=== PATIENT | male | born 1975 | race Caucasian/White ===

== ENCOUNTER 2018-11-21 00:49 | Emergency (ER) | payer OTHER ==
[2018-11-21 00:56] VITALS: BMI 24.3
--- NOTE | 2018-11-21 02:01 | ED PDOC ---
HPI: Psych/Substance Abuse Time Seen by Provider: 11/21/18 01:15 Chief Complaint (Nursing): Alcohol Ingestion Chief Complaint (Provider): Alcohol Ingestion ED Caveat: Intoxicated History Per: EMS, Other (Police) History/Exam Limitations: intoxication Modifying Factor(s): Alcohol Additional Complaint(s): 43 y/o male brought in by police and EMS for alcohol intoxication. Per police, patient seemed stumbling in street and fell to a sideview mirror of a car and hit his head. Patient was unconscious on arrival but arousable to verbal stimuli. Police report patient is speaking but intoxicated and deny loss of consciousness. Patient opens his eye for sternum rub. Patient is unable to provide history due to his intoxicated condition. PMD: non provided Past Medical History Reviewed: Historical Data, Nursing Documentation, Vital Signs Vital Signs: Last Vital Signs Temp 98.9 F 11/21/18 00:56 Pulse 73 11/21/18 00:56 Resp 18 11/21/18 00:56 BP 128/83 11/21/18 00:56 Pulse Ox 97 11/21/18 00:56 PAULA Report Viewed: Yes - Medical History PMH: No Chronic Diseases Denies: Chronic Kidney Disease - Surgical History Surgical History: Tonsillectomy - Family History Family History: States: Unknown Family Hx - Social History Alcohol: > 2 Drinks/Day - Home Medications Home Medications: Ambulatory Orders Medication Instructions Recorded No Known Home Med 06/10/18 - Allergies Allergies/Adverse Reactions: Allergies Allergy/AdvReac Type Severity Reaction Status Date / Time No Known Allergies Allergy Verified 11/21/18 00:56 Review of Systems Review Of Systems: ROS cannot be obtained secondary to pt's inabilty to answer questions. Physical Exam - Reviewed Nursing Documentation Reviewed: Yes Vital Signs Reviewed: Yes (within normal limits) - Physical Exam Appears: Positive for: No Acute Distress Head Exam: Positive for: ATRAUMATIC, NORMOCEPHALIC Eye Exam: Positive for: Other (0.5 cm laceration to right eyebrow) Neck: Positive for: Normal, Painless ROM, Supple Cardiovascular/Chest: Positive for: Regular Rate, Rhythm. Negative for: Murmur Respiratory: Positive for: Normal Breath Sounds. Negative for: Wheezing Gastrointestinal/Abdominal: Positive for: Normal Exam, Soft. Negative for: Tenderness Extremity: Positive for: Normal ROM. Negative for: Pedal Edema, Deformity - Laboratory Results Result Diagrams: 11/21/18 01:55 11/21/18 01:55 - ECG O2 Sat by Pulse Oximetry: 97 (RA) Pulse Ox Interpretation: Normal Medical Decision Making Medical Decision Making: Time: 114 A/P: AMS seen sleeping on the stretcher --Probable alcohol intoxication --Intercranial, spinal or facial injury --Basic labs with alcohol level --CT c-spine, maxillofacial and head 0302 --Patient is incoherent, out of bed, urinating on floor and falling onto hughes and on stretcher. Requires sedation in order to get CT 0611 CT Head Findings: Normal size of the ventricles and extra-axial spaces for the patient's age. Normal white matter tracts of the supratentorial brain. Normal basal ganglia and thalami. Normal brainstem. Normal cerebellum. There is no demonstrated extra-axial, intraparenchymal, or intraventricular hemorrhage. There are no findings of an acute ischemic infarction. Normal calvarium. There is no demonstrated fracture. Normal soft tissue structures. Mild chronic inflammatory changes of the visualized paranasal sinuses. IMPRESSION: Normal unenhanced CT scan of the brain. Chronic sinusitis. 0614 CT Maxillofacial Findings: Chronic deformity of the left parasymphyseal aspect of the mandible. Mild chronic mucosal inflammatory changes of the paranasal sinuses. Normal bilateral orbital contents. Normal bilateral medial and inferior orbital hughes. Normal bilateral maxillary bones. Normal bilateral maxillary sinuses. Normal bilateral frontozygomatic arches. Normal bilateral zygomatic temporal arches. Normal nasal bones. Normal anterior nasal spine. Normal soft tissue structures. There is no demonstrated fracture. Impression: No CT evidence of acute bone pathology. 0616 CT C-Spine Findings: There are diffuse spondylotic changes. Findings are demonstrated by disc space narrowing, osteophyte formation and degenerative endplate changes. Facet joint arthropathy is noted. No fracture or dislocation is seen. No aggressive bone lesion is noted. Impression: Spondylosis. Multilevel facet joint arthropathy. No acute bone pathology. 0620 CTs show no acute injury. Wound cleaned and dressed. Will no suture until patient is awake and co operative, pending sobriety. 0700 Patient signed out to Dr. Salcedo pending sobriety. Scribe Attestation: Documented by Yareli Parikh, acting as a scribe for Kiara Rene MD. Provider Scribe Attestation: All medical record entries made by the Scribe were at my direction and personally dictated by me. I have reviewed the chart and agree that the record accurately reflects my personal performance of the history, physical exam, medical decision making, and the department course for this patient. I have also personally directed, reviewed, and agree with the discharge instructions and disposition. Disposition - Disposition Forms: [employer] ([place])
[2018-11-21 02:29] LABS: BASO # 0.1 K/uL (0.0-0.2); BASO % 0.6 % (0.0-2.0); EOS # 0.2 K/uL (0.0-0.7); EOS % 2.3 % (0.0-4.0); HEMOGLOBIN 15.4 g/dL (12.0-18.0); LYMPH # 3.3 K/uL (1.0-4.3); LYMPH % 37.7 % (20.0-40.0); MEAN CELL VOLUME 94.1 fl (80.0-94.0); MEAN CORPUSCULAR HEMOGLOBIN 31.7 pg (27.0-31.0); MEAN CORPUSCULAR HGB CONC 33.7 g/dL (33.0-37.0); MEAN PLATELET VOLUME 9.2 fl (7.2-11.7); MONO # 0.7 K/uL (0.0-0.8); MONO % 8.3 % (0.0-10.0); NEUT # 4.4 K/uL (1.8-7.0); NEUT % 51.1 % (50.0-75.0); NRBC % 0.4 % (0.0-0.0); RBC 4.86 Mil/uL (4.40-5.90); RED CELL DISTRIBUTION WIDTH 13.4 % (11.5-14.5); WHITE BLOOD COUNT 8.7 K/uL (4.8-10.8)
[2018-11-21 02:50] LABS: BLOOD UREA NITROGEN 16 mg/dl (9-20); CALCIUM 8.5 mg/dL (8.4-10.2); GFR NON-AFRICAN AMERICAN > 60
[2018-11-21] MEDS ORDERED: Sodium Chloride 0.9% 1,000 ML IV STA (03:03)
--- NOTE | 2018-11-21 07:15 | ED PDOC ---
- Laboratory Results Result Diagrams: 11/21/18 01:55 11/21/18 01:55 - ECG O2 Sat by Pulse Oximetry: 97 (RA) - Progress Re-evaluation Time: 11:29 Condition: Improved (Awake alert oriented no focal neuro deficits) Medical Decision Making Medical Decision Makin Patient care endorsed from Dr. Rene to this provider pending sobriety and final disposition. ---- Scribe Attestation: Documented by Jackeline Vigil, acting as a scribe for Mian Salcedo MD. Provider Scribe Attestation: All medical record entries made by the Scribe were at my direction and personally dictated by me. I have reviewed the chart and agree that the record accurately reflects my personal performance of the history, physical exam, medical decision making, and the department course for this patient. I have also personally directed, reviewed, and agree with the discharge instructions and disposition. Disposition - Clinical Impression Clinical Impression: Alcohol abuse with alcohol-induced disorder - POA Present On Arrival: None - Disposition Disposition: Discharged/Transfer to Law Enforcement Disposition Time: 11:28 Condition: FAIR Additional Instructions: Medically and psychiatrically stable for incarceration Instructions: Alcohol Abuse and Alcoholism (DC) Forms: [employer] ([place])
--- NOTE | 2018-11-21 10:40 | CT ---
Date of service: 11/21/2018 PROCEDURE: CT Cervical Spine without contrast HISTORY: Head trauma while intoxicated COMPARISON: None available. TECHNIQUE: Axial computed tomography images were obtained of the cervical spine without the use of intravenous contrast. Coronal and sagittal reformatted images were created and reviewed. Radiation dose: Total exam DLP = 417.67 mGy-cm. This CT exam was performed using one or more of the following dose reduction techniques: Automated exposure control, adjustment of the mA and/or kV according to patient size, and/or use of iterative reconstruction technique. FINDINGS: Note that the study is somewhat limited due to crossing streak and beam hardening artifact arising from dense clavicles and shoulder girdles are partially obscuring fine soft tissue detail in the canal in the lower cervical upper thoracic region. Study is further limited by motion artifact. VERTEBRAE: No acute compression fractures nor retropulsed fragments. Vertebral bodies exhibit relatively normal stature. Vertebral bodies and facets normally aligned... No definitive suspicious focal lytic or blastic lesions. DISCS/SPINAL CANAL/NEURAL FORAMINA: Mild degenerative spondylosis seen at the C3-C4 level with chronic appearing Schmorl's node along the anterior superior L4 endplate. Minimal central and bilateral disc bulge flattens the ventral surface of the thecal sac and reaches the ventral surface of the spinal cord. Overall central canal appears adequate. At the C5-C6 level, there is disc space narrowing with small central and bilateral disc ridge complex that compresses the ventral surface of the thecal sac and may minimally compress the ventral surface of the cord as well. Note that the canal contents are less well seen in the mid to lower cervical and upper thoracic regions due to streak and beam hardening artifact arising from dense clavicles and shoulder girdles.. Mild degenerative hypertrophic uncovertebral joint changes.. Facets also prominent at this level. Exit foramina are narrowed bilaterally. PARASPINAL SOFT TISSUES: Paraspinal soft tissues appear grossly unremarkable. OTHER FINDINGS: Lung apices clear. No evidence of apical pneumothorax. IMPRESSION: No acute fractures. Mild degenerative spondylosis most notably affecting the C3-C4 and C4-C5 C6 levels as described..
--- NOTE | 2018-11-21 10:45 | CT ---
Date of service: 11/21/2018 PROCEDURE: CT HEAD WITHOUT CONTRAST. HISTORY: head trauma while intoxicated COMPARISON: Comparison made with concurrent CT scan maxillofacial skeleton.. Comparison also made with prior CT scan of brain dated 08/28/2008. TECHNIQUE: Axial computed tomography images were obtained through the head/brain without intravenous contrast. Radiation dose: Total exam DLP = 1079.9 mGy-cm. This CT exam was performed using one or more of the following dose reduction techniques: Automated exposure control, adjustment of the mA and/or kV according to patient size, and/or use of iterative reconstruction technique. FINDINGS: HEMORRHAGE: No acute parenchymal, subarachnoid nor extra-axial hemorrhage. BRAIN: No mass effect or edema. No atrophy or chronic microvascular ischemic changes. Mild-moderate generalized volume loss. VENTRICLES: No obstructive hydrocephalus. CALVARIUM: Unremarkable. PARANASAL SINUSES: Unremarkable as visualized. No significant inflammatory changes mild mucoperiosteal inflammatory changes seen within the ethmoid air complex as well as sphenoid sinus. Minimal mucosal thickening both maxillary antra. MASTOID AIR CELLS: Unremarkable as visualized. No inflammatory changes. OTHER FINDINGS: None. IMPRESSION: No acute intracranial hemorrhage. Mild generalized volume loss. Mild mucoperiosteal inflammatory changes seen within the ethmoids and sphenoid sinuses with minimal mucosal thickening both maxillary antra.
--- NOTE | 2018-11-21 10:53 | CT ---
Date of service: 11/21/2018 PROCEDURE: CT MAXILLOFACIAL BONES WITHOUT CONTRAST HISTORY: Facial trauma right orbit, ETOH COMPARISON: Correlation made with concurrent CT scan brain.. TECHNIQUE: Contiguous axial CT images of the maxillofacial bones were obtained. Coronal and sagittal reformats were generated. Radiation dose: Total exam DLP = 836.12 mGy-cm. This CT exam was performed using one or more of the following dose reduction techniques: Automated exposure control, adjustment of the mA and/or kV according to patient size, and/or use of iterative reconstruction technique. FINDINGS: NASAL BONES: Unremarkable. ORBITS: Unremarkable. PARANASAL SINUSES/ MASTOIDS: No fluid levels seen to suggest acute hemorrhage or sinusitis Min. Mild mucosal thickening seen within the ethmoid air complex extending superiorly into the frontal sinus on the left side. There is also mild mucosal thickening in the sphenoid sinus. Minimal mucosal thickening both maxillary antra left greater than right. MAXILLA: Unremarkable. MANDIBLE/ TEMPOROMANDIBULAR JOINTS: Unremarkable. SKULL BASE: Unremarkable. TEMPORAL BONES: Middle ears and mastoid grossly unremarkable. OTHER FINDINGS: None. IMPRESSION: No evidence of acute maxillofacial skeletal fractures. Mild mucoperiosteal inflammatory changes within all the paranasal sinuses.
[2018-11-21 11:13] LABS: BARBITURATES, UR NEGATIVE (NEGATIVE); BENZODIAZEPINES, UR NEGATIVE (NEGATIVE); OPIATES, UR NEGATIVE (NEGATIVE); PHENCYCLIDINE, UR NEGATIVE (NEGATIVE)
[2018-11-21] MEDS ORDERED: Lidocaine 1% Inj (20ml) ONE (11:48)
[2018-11-21 12:23] VITALS: BP 132/72; PULSE 78; RESP 16; TEMP 97.9; O2SAT 100
== END 2018-11-21 12:15 ==
LOC: H.ER 00:49
DX: F10.129 Alcohol abuse with intoxication, unspecified (principal); S09.90XA Unspecified injury of head, initial encounter; S09.93XA Unspecified injury of face, initial encounter; W19.XXXA Unspecified fall, initial encounter; Y92.89 Other specified places as the place of occurrence of the external cause; J32.9 Chronic sinusitis, unspecified
CPT/HCPCS: 70450; 70486; 72125; 80048; 80320; 80324; 80345; 80346; 80349; 80353; 80358; 80361; 82948; 83992; 85025; 96374; 96375; 99285; J2060; J2405; J7030